=== PATIENT | male | born 1950 | race Caucasian/White ===

== ENCOUNTER → 2024-05-14 | Day surgery (SDC) | payer MEDICARE, BC ==
[~2024-05-14] MED LIST: Ketamine 200 MG/20 ML MDV ONE; Lidocaine 2% 20 ML MDV ONE; Propofol 200 MG/20 ML SDV ONE; fentaNYL 50 MCG/ML SDV ONE
[2024-05-14] MEDS: Lactated Ringers 1,000 ML IV SCH (10:07)
[2024-05-14 11:30] VITALS: BP 116/60; PULSE 63
== END ==
LOC: CC.SDS 09:41
PROVIDERS: ATTEND Family Medicine
DX: Z12.11 Encounter for screening for malignant neoplasm of colon (principal); D12.2 Benign neoplasm of ascending colon; K57.30 Diverticulosis of large intestine without perforation or abscess without bleeding; K26.9 Duodenal ulcer, unspecified as acute or chronic, without hemorrhage or perforation; G47.30 Sleep apnea, unspecified; N40.0 Benign prostatic hyperplasia without lower urinary tract symptoms; M10.9 Gout, unspecified; E78.00 Pure hypercholesterolemia, unspecified; E66.9 Obesity, unspecified; Z68.37 Body mass index [BMI] 37.0-37.9, adult; Z79.899 Other long term (current) drug therapy
CPT/HCPCS: 45385; 87081; J2704; J3010; J7120; 00813; 88305; 99100; J3490